=== PATIENT | male | born 1990 | race Caucasian/White ===

== ENCOUNTER 2019-01-27 03:26 | Emergency (ER) | payer BC ==
[~2019-01-27] VITALS: Ht 182.9 cm; Wt 117.9 kg
[2019-01-27 03:35] VITALS: BP 123/81
[2019-01-27] MEDS ORDERED: FAMOTIDINE 20 MG TAB PO ONE (03:50)
--- NOTE | 2019-01-27 04:05 | NUR ---
PT AMBULATES TO BED 7 FOR EXAM. COMPLAINS OF EPIGASTRIC PAIN PROGRESSIVELY WORSE OVER THE LAST COUPLE DAYS. NO ACTIVE N/V/D
[2019-01-27 04:26] LABS: BASOPHILS % (AUTO) 0.2 % (0.0-2.0); EOSINOPHILS # (AUTO) 0.1 K/uL (0-0.4); EOSINOPHILS % (AUTO) 0.9 % (0.0-4.0); HEMATOCRIT 43.8 % (36-52); HEMOGLOBIN 14.8 g/dL (12.0-18.0); LYMPHOCYTES # (AUTO) 1.2 K/uL (2.0-11.5); LYMPHOCYTES % (AUTO) 12.5 % (20.5-51.1); MEAN CORPUSCULAR HEMOGLOBIN 31 pg (27-31); MEAN CORPUSCULAR HGB CONC 34 g/dL (33-37); MEAN CORPUSCULAR VOLUME 90.2 fL (80-94); MONOCYTES # (AUTO) 0.5 K/uL (0.8-1.0); MONOCYTES % (AUTO) 4.7 % (1.7-9.3); NEUTROPHILS # (AUTO) 7.9 K/uL (1.8-7.7); NEUTROPHILS % (AUTO) 81.7 % (42.2-75.2); PLATELET COUNT (AUTO) 277 K/uL (140-450); RED BLOOD CELL COUNT(AUTO) 4.86 MIL/uL (4.20-6.10); RED CELL DISTRIBUTION WIDTH 12.4 % (11.6-13.7); WHITE BLOOD COUNT (AUTO) 9.6 K/uL (4.8-10.8)
[2019-01-27] MEDS ORDERED: NACL 0.9% 1,000 ML IV ONE (04:40)
[2019-01-27] MEDS ORDERED: MORPHINE SULFATE 4 MG/ML SYR IVP ONE ×2 (04:40→06:55)
[2019-01-27] MEDS ORDERED: ONDANSETRON 4 MG/2 ML VIAL IVP ONE (04:40)
[2019-01-27 04:41] LABS: ALBUMIN 3.9 g/dL (3.4-5.0); ANION GAP 12.5 (8-16); CARBON DIOXIDE 28.5 mmol/L (21-32); CREATININE 0.9 mg/dL (0.7-1.3); TOTAL BILIRUBIN 0.4 mg/dL (0.0-1.0)
--- NOTE | 2019-01-27 05:10 | NUR ---
pt states feeling better. waiting on CT
[2019-01-27 06:01] LABS: APPEARANCE,URINE CLEAR (CLEAR); BILIRUBIN,URINE NEGATIVE (NEGATIVE); BLOOD, URINE NEGATIVE (NEGATIVE); COLOR,URINE YELLOW (YELLOW); LEUKOCYTE ESTERASE ,URINE NEGATIVE (NEGATIVE); NITRITE, URINE NEGATIVE (NEGATIVE); UGLUCOSE NEGATIVE (NEGATIVE)
--- NOTE | 2019-01-27 07:20 | NUR ---
Recieved patient aaox4, skin w/d to touch ivf infusing via Left AC, patient voices no c/o pain at present, eill cont. to monitor for changes.
--- NOTE | 2019-01-27 07:45 | NUR ---
Seen by ED MD Dr. Luis, test results were reviewed.
[2019-01-27 08:29] VITALS: BP 122/86
--- NOTE | 2019-01-27 08:29 | NUR ---
Patient discharged with v/s stable. Written and verbal after care instructions given and explained. Patient alert, oriented and verbalized understanding of instructions. Ambulatory with steady gait. All questions addressed prior to discharge. ID band removed. Patient advised to follow up with PMD. Rx of PROTONIX, SUCRALFATE given. Patient educated on indication of medication including possible reaction and side effects. Opportunity to ask questions provided and answered.
--- NOTE | 2019-01-27 08:29 | NUR ---
IV removed, catheter intact and site benign. Applied folded 4x4 gauze and tape to stop bleeding.
--- NOTE | 2019-01-27 11:10 | NUR ---
Late entry. Confirmed with RN that 0.9 NS IV 1000 ml began at 0450 and completed at 0550
== END 2019-01-27 08:29 | disposition home or self-care (01) ==
LOC: MED 03:26
DX: R10.13 Epigastric pain (principal)
CPT/HCPCS: 36415; 74177; 76705; 80053; 81003; 83690; 85025; 96374; 96376; 99284; J2270; J2405; J7030; Q0092; Q9967; 99283

== ENCOUNTER 2022-07-17 07:23 | Emergency (ER) | payer BC ==
[~2022-07-17] VITALS: Ht 185.4 cm; Wt 108.9 kg
[2022-07-17 07:28] VITALS: BP 144/88
--- NOTE | 2022-07-17 07:34 | NUR ---
pt ambulatory to bed 03
--- NOTE | 2022-07-17 08:03 | NUR ---
MD RUSH AT BEDSIDE FOR ASSESS. PT VSS. AAOX4. NAD NOTED. AWAITING ADDITIONAL ORDERS. WILL CONT TO MONITOR PT.
[2022-07-17] MEDS ORDERED: ONDANSETRON 4 MG/2 ML VIAL IVP ONE (08:10)
[2022-07-17] MEDS ORDERED: FAMOTIDINE 20 MG/2 ML VIAL IVP ONE (08:10)
[2022-07-17] MEDS ORDERED: KETOROLAC 30 MG/ML VIAL IVP ONE (08:10)
[2022-07-17] MEDS ORDERED: NACL 0.9% 1,000 ML IV SCH (08:10)
--- NOTE | 2022-07-17 08:30 | NUR ---
ULTRASOUND AT BEDSIDE FOR U/S OF ABDOMEN PER MD ORDERS. PT VSS. NAD NOTED. WILL CONT TO MONITOR PT. IVF INFUSING, PAIN MEDS AND ANTIEMETICS ADMINISTERED.
[2022-07-17 08:41] LABS: BASOPHILS % (AUTO) 0.1 % (0.0-2.0); EOSINOPHILS # (AUTO) 0.1 K/uL (0-0.4); EOSINOPHILS % (AUTO) 0.3 % (0.0-4.0); HEMATOCRIT 39.2 % (36-52); HEMOGLOBIN 13.5 g/dL (12.0-18.0); LYMPHOCYTES % (AUTO) 5.7 % (20.5-51.1); MEAN CORPUSCULAR HEMOGLOBIN 31 pg (27-31); MEAN CORPUSCULAR HGB CONC 34 g/dL (33-37); MEAN CORPUSCULAR VOLUME 90.4 fL (80-94); MONOCYTES # (AUTO) 1.1 K/uL (0.8-1.0); NEUTROPHILS # (AUTO) 15.4 K/uL (1.8-7.7); NEUTROPHILS % (AUTO) 87.9 % (42.2-75.2); PLATELET COUNT (AUTO) 294 K/uL (140-450); RED BLOOD CELL COUNT(AUTO) 4.34 MIL/uL (4.20-6.10); WHITE BLOOD COUNT (AUTO) 17.6 K/uL (4.8-10.8)
[2022-07-17 09:05] LABS: ANION GAP 15.1 (8-16); CARBON DIOXIDE 24.3 mmol/L (21-32); POTASSIUM 3.4 mmol/L (3.5-5.1); TOTAL BILIRUBIN 0.6 mg/dL (0.0-1.0)
[2022-07-17] MEDS ORDERED: NAPR-1704 PO (09:36)
[2022-07-17] MEDS ORDERED: ONDA-188 PO (09:36)
[2022-07-17] MEDS ORDERED: ACET-8905 PO (09:36)
[2022-07-17 09:42] VITALS: BP 121/63
--- NOTE | 2022-07-17 09:42 | NUR ---
Patient discharged with v/s stable. Written and verbal after care instructions given and explained. Patient alert, oriented and verbalized understanding of instructions. Ambulatory with steady gait. All questions addressed prior to discharge. ID band removed. Patient advised to follow up with PMD. Rx of NAPROXEN, NORCO AND ZOFRAN given. Patient educated on indication of medication including possible reaction and side effects. Opportunity to ask questions provided and answered.IV D/C'D.
== END 2022-07-17 09:42 | disposition home or self-care (01) ==
LOC: MED 07:23
DX: K80.20 Calculus of gallbladder without cholecystitis without obstruction (principal); F12.90 Cannabis use, unspecified, uncomplicated
CPT/HCPCS: 36415; 76705; 80053; 83690; 85025; 96361; 96374; 96375; 99285; J1885; J2405; J3490; J7030; Q0092